=== PATIENT | female | born 1980 | race Caucasian/White ===

== ENCOUNTER 2016-10-29 10:59 | Emergency (ER) | payer MEDICAID ==
[2016-10-29] MEDS ORDERED: IBUPROFEN 800 MG TABLET ONE (11:40)
[2016-10-29] MEDS ORDERED: DEXAMETHASONE SOD PHOS 10 MG/1 ML VIAL ONE (11:40)
[2016-10-29] MEDS ORDERED: AMOXICILLIN TRIHYDRATE 250 MG CAPSULE ONE (11:40)
== END 2016-10-29 12:01 | disposition home or self-care (01) ==
LOC: ED 10:59
DX: K04.7 Periapical abscess without sinus (principal)
CPT/HCPCS: 99283 ×2; A9270 ×2; J1100